=== PATIENT | male | born 1985 | race Caucasian/White ===

== ENCOUNTER 2017-09-24 06:07 | Outpatient (CLI) | payer BC ==
[~2017-09-24] VITALS: Ht 182.9 cm; Wt 64.9 kg
[~2017-09-24 06:07] MED LIST: FAMO20TA5 PO; LEVO500T69 PO; METR500T PO; PRD20T PO
[2017-09-24] MEDS ORDERED: SERT100T8 PO (13:51)
== END 2017-09-24 14:00 ==
LOC: PREOP 06:07
PROVIDERS: ATTEND Surgery
DX: Z01.818 Encounter for other preprocedural examination (principal)

== ENCOUNTER 2017-10-01 08:54 | Day surgery (SDC) | payer SELFPAY ==
[~2017-10-01] VITALS: Ht 182.9 cm; Wt 64.9 kg
[~2017-10-01 08:54] MED LIST changes: +SERT100T8 PO
[2017-10-01] MEDS ORDERED: D5 LR IV SOLUTION 1,000 ML IV SCH (09:15)
[2017-10-01] MEDS ORDERED: LACTATED RINGERS 1,000 ML IV STA (09:22)
[2017-10-01] MEDS ORDERED: LACTATED RINGERS 1,000 ML IV ONE (09:23)
[2017-10-01 09:25] VITALS: BP 120/87
[2017-10-01] MEDS ORDERED: PROPOFOL INJECTION 50 ML IV ONE (10:37)
[2017-10-01] MEDS ORDERED: MIDAZOLAM 2 MG/2 ML (VERSED) VIAL ONE (10:38)
[2017-10-01] MEDS ORDERED: HURRICAINE EXT TUBE (BENZOCAINE) ONE (10:44)
--- NOTE | 2017-10-01 10:48 | Progress Note-Pre Operative ---
Pre-Operative Progress Note H&P Reviewed The H&P was reviewed, patient examined and no changes noted. Date Seen by Provider: Oct 01, 2017 Time Seen by Provider: 10:47 Date H&P Reviewed: Oct 01, 2017 Time H&P Reviewed: 10:47 Pre-Operative Diagnosis: melena bright red blood per rectum llq abdominal pain. SAIMA LOVE DO Oct 01, 2017 10:48
[2017-10-01] MEDS ORDERED: HURRICAINE EXT TUBE (BENZOCAINE) XX ONE (11:15)
--- NOTE | 2017-10-01 11:26 | Progress Note-Post Operative ---
Post-Operative Progess Note Surgeon (s)/Neuropsychology Medical Consultant (s) Surgeon SAIMA LOVE DO Neuropsychology Medical Consultant: na Pre-Operative Diagnosis melena bright red blood per rectum llq abdominal pain. Post-Operative Diagnosis normal egd, normal colon Procedure & Operative Findings Date of Procedure 10/01/17 Procedure Performed/Findings egd c biopsy antrum, c olonoscopy Anesthesia Type per manager content Estimated Blood Loss Estimated blood loss (mL): none Specimens/Packing Specimens Removed antrum SAIMA LOVE DO Oct 01, 2017 11:26
--- NOTE | 2017-10-01 11:27 | Discharge Inst-Simple/Standard ---
Discharge Inst-Standard Patient Instructions/Follow Up Plan of Care/Instructions/FU: 2 weeks Carmen Activity as Tolerated: Yes Discharge Diet: Regular Diet SAIMA LOVE DO Oct 01, 2017 11:27
[2017-10-01 11:45] VITALS: BP 100/69
[2017-10-01 12:15] VITALS: BP 116/86
[2017-10-01 12:20] VITALS: BP 116/86
--- NOTE | 2017-10-01 17:32 | OPERATIVE REPORT ---
DATE OF SERVICE: 10/01/2017 PREOPERATIVE DIAGNOSES: Melena, bright red blood per rectum, left lower quadrant abdominal pain. POSTOPERATIVE DIAGNOSES: Normal EGD, normal colon, internal hemorrhoids. PROCEDURE: EGD with biopsy of the antrum and colonoscopy. SURGEON: Saima Morales DO ANESTHESIA: Per CLAIM TECHNICIAN. ESTIMATED BLOOD LOSS: None. COMPLICATIONS: None. INDICATIONS: The patient is a 32-year-old male who has been having dark and bright red blood per rectum. He understands risks and benefits of procedure and wished to proceed with procedure. Consent was signed on the chart. DESCRIPTION OF PROCEDURE: The patient was taken to the endoscopy suite, placed in left lateral recumbent position. Timeout was performed. Scope was inserted in the mouth, down the esophagus, stomach and into the duodenum without difficulty. There were no polyps, masses or ulcerations. The scope was then slowly retracted back to the stomach, where it was further insufflated. No polyps, masses or ulcerations. No erythematous changes. Biopsy of the antrum was obtained. Scope was retroflexed noting no other pathology. Scope was returned to its normal position, slowly withdrawn to the distal esophagus, which had normal appearance. Scope was then slowly retracted back until completely removed. The patient then had colonoscopy performed. On digital rectal exam, there were no palpable polyps, masses or ulcerations. Slight hemorrhoidal disease. Scope was inserted in the rectum and advanced all the way to the cecum with minimal difficulty. Prep was adequate. Scope was then slowly retracted back. There were no polyps, masses or ulcerations within the cecum, ascending, transverse, descending and sigmoid colon. Once in the rectum, scope was retroflexed just noting some internal hemorrhoids. Scope was returned to its normal position, slowly withdrawn until completely removed. The patient tolerated the procedure well without any complications and taken to recovery room in stable condition. RECOMMENDATIONS: The patient will follow up in 2 weeks to discuss pathology results and see how he is doing. We will consider HET treatment for hemorrhoids. If he has any continued bleeding, he should be reevaluated at that time. He should have normal screening guidelines for colonoscopy. Job ID: [id number] DocumentID: [id number] Dictated Date: 10/01/2017 11:31:11 Drive In Waiter/Waitress Date: 10/01/2017 17:31:59 Dictated By: SAIMA MORALES DO
== END 2017-10-01 12:20 | disposition home or self-care (01) ==
LOC: ENDO 08:54
PROVIDERS: ATTEND Surgery
DX: K92.1 Melena (principal); R10.32 Left lower quadrant pain; K64.8 Other hemorrhoids; Z87.891 Personal history of nicotine dependence

== ENCOUNTER 2022-01-30 20:38 | Emergency (ER) | payer OTHER ==
[~2022-01-30 20:38] MED LIST changes: +SERT-414 PO; -SERT100T8 PO
--- NOTE | 2022-01-30 22:33 | ED General ---
General Chief Complaint: General Problems/Pain Stated Complaint: BODY ACHES,LIGHTHEADED,DIZZY Nursing Triage Note: PT ARRIVAL TO ER VIA PRIVATE VEHICLE FROM HOME WITH COMPLAINT OF BODY ACHES, HEADACHE, DIZZINESS SINCE 1600 TODAY. PATIENT DENIES BEING AROUND ANYONE SICK. PT IS COVID VACCINATED. Source of Information: Patient History of Present Illness Date Seen by Provider: Jan 30, 2022 Time Seen by Provider: 22:25 Initial Comments PT ARRIVES VIA POV FROM HOME STATES HE BEGAN FEELING BAD AT 1800 TONIGHT ON WAKING FROM A NAP C/O CHILLS, BODY ACHES, HEADACHE, DIZZINESS, TIRED NO OTHER SYMPTOMS HAS NOT TAKEN ANYTHING FOR SYMPTOMS PT DENIES ANY KNOWN SICK CONTACTS PT HAS HAD COVID VACCINE X PT IS NOT FLU VACCINATED NO CHRONIC MEDICAL PROBLEMS Allergies and Home Medications Allergies Coded Allergies: meperidine HCl (Unverified Allergy, Intermediate, RASH, 08/30/10) Patient Home Medication List Sertraline HCl (Sertraline HCl) 100 Mg Tablet, 100 MG PO DAILY, (Reported) Entered as Reported by: RAJANI POWELL on 09/24/17 6241 Review of Systems Review of Systems Constitutional: see HPI, chills, dizziness, malaise EENTM: no symptoms reported; No nose congestion, No throat pain Respiratory: no symptoms reported; No cough, No short of breath Cardiovascular: no symptoms reported Gastrointestinal: no symptoms reported; No abdominal pain, No diarrhea, No nausea, No vomiting Genitourinary: no symptoms reported Musculoskeletal: see HPI (BODY ACHES) Skin: no symptoms reported Psychiatric/Neurological: See HPI, Headache Hematologic/Lymphatic: No Symptoms Reported Immunological/Allergic: no symptoms reported Past Xlbbnnp-Viniaj-Keakuv Hx Patient Social History Tobacco Use?: No Use of E-Cig and/or Vaping dev: No Substance use?: No Alcohol Use?: Yes Alcohol type: Beer, Hard Liquor Alcohol Frequency: Several times a month Pt feels they are or have been: No Immunizations Up To Date Influenza Vaccine Up-to-Date: No; Not Current Second COVID19 Vaccination Mohit: UNKNOWN COVID19 Vaccine Corporate Law Specialist: MODERNA Seasonal Allergies Seasonal Allergies: Yes Past Medical History Surgeries: No Respiratory: No Cardiac: No Neurological: No Reproductive Disorders: No Genitourinary: Yes Kidney Stones Gastrointestinal: Yes Gastroesophageal Reflux Musculoskeletal: Yes Chronic Back Pain Endocrine: No HEENT: No Cancer: No Psychosocial: Yes Anxiety Integumentary: No Blood Disorders: No Physical Exam Vital Signs Vital Signs - First Documented 01/30/22 20:45 Temp 37.6 Pulse 121 Resp 18 B/P (MAP) 133/89 (104) Pulse Ox 100 O2 Delivery Room Air Capillary Refill : Less Than 3 Seconds Height, Weight, BMI Height: 6'0.00" Weight: 143lbs. 0.0oz. [id number]; 19.4 BMI Method:Stated General Appearance: No Apparent Distress, WD/WN HEENT: PERRL/EOMI, TMs Normal, Normal ENT Inspection, Pharynx Normal Neck: Normal Inspection Respiratory: Normal Breath Sounds, No Accessory Muscle Use, No Respiratory Distress Cardiovascular: Regular Rate, Rhythm, No Murmur Gastrointestinal: Non Tender, Soft Back: Normal Inspection Extremity: Normal Inspection Neurologic/Psychiatric: Alert, Oriented x3, No Motor/Sensory Deficits, Normal Mood/Affect, director integrated II-XII Norm as Tested Skin: Normal Color, Warm/Dry Progress/Results/Core Measures Suspected Sepsis SIRS Temperature: Pulse: 121 Respiratory Rate: 18 Blood Pressure 133 /89 Mean: 104 Results/Orders Lab Results Laboratory Tests Test 01/30/22 22:10 Range/Units Influenza Type A (RT-PCR) Not Detected Not Detecte Influenza Type B (RT-PCR) Not Detected Not Detecte SARS-CoV-2 RNA (RT-PCR) Detected H Not Detecte My Orders Orders - QUINTIN OCHOA DO Covid 19 Inhouse Test (01/30/22 22:24) Influenza A And B By Pcr (01/30/22 22:24) Isolation Central Supply Req (01/30/22 22:24) Vital Signs/I&O 01/30/22 01/30/22 20:45 23:26 Temp 37.6 37.6 Pulse 121 100 Resp 18 18 B/P (MAP) 133/89 (104) 133/89 Pulse Ox 100 100 O2 Delivery Room Air Room Air Capillary Refill : Less Than 3 Seconds Blood Pressure Mean: 104 Progress Note : Progress Note PLACED IN ISOLATION ROOM PPE WORN COVID AND FLU TESTING DONE. Departure Impression Primary Impression: COVID-19 virus infection Disposition: 01 HOME, SELF-CARE Condition: Stable Departure-Patient Inst. Decision time for Depature: 23:20 Referrals: [facility] CONS[facility]ANT (PCP/Family) Primary Care Physician Patient Instructions: COVID-19 ED, Preventing the Spread of an Infectious Disease Add. Discharge Instructions: LOTS OF CLEAR LIQUIDS TYLENOL 1 GRAM + MOTRIN 800 MG EVERY 6 HOURS FOR PAIN OR FEVER OVER THE COUNTER MEDICATIONS FOR COUGH AND CONGESTION QUARANTINE FOR 10 DAYS FOLLOW UP WITH YOUR DR NEEDED, RETURN TO ER IF YOU DEVELOP DIFFICULTY BREATHING OR SIGNS OF DEHYDRATION. All discharge instructions reviewed with patient and/or family. Voiced understanding. Work/School Note: Work Release Form Date Seen in the Emergency Department: Jan 30, 2022 Return to Work: Feb 10, 2022 QUINTIN OCHOA DO Jan 30, 2022 22:33
[2022-01-30 23:26] VITALS: BP 133/89
== END 2022-01-30 23:37 | disposition home or self-care (01) ==
LOC: EDUNIT# 20:38 → ER 20:40
DX: U07.1 COVID-19 (principal)
CPT/HCPCS: 87636; 99283